=== PATIENT | male | born 1955 | race African-American/Black ===

== ENCOUNTER 2016-09-30 08:42 | Day surgery (SDC) | payer OTHER ==
[2016-09-25 10:57] VITALS: BMI 37.9
[2016-09-30] MEDS ORDERED: PROPOFOL 20 ML ONE ×3 (09:01→12:10)
[2016-09-30 12:36] VITALS: TEMP 98.2
[2016-09-30 13:16] VITALS: BP 128/72; PULSE 78
--- NOTE | 2016-10-01 16:20 | PATH ---
Surgical Pathology Report Patient Name: MEHRAN NOVA [facility]. Rec. #: [id number] /Age/Gender: 1955 (Age: 61) / M Account: [id number] Location: [facility]-ENDOS[facility] Taken: 09/30/2016 Received: 09/30/2016 Reported: 10/01/2016 Physicians: Shen Alexis M.D. Specimen(s) Received BX RIGHT COLON Clinical History History of polyps Final Diagnosis RIGHT COLON, BIOPSY: TUBULAR ADENOMA. Electronically Signed Daria Vivar M.D. Gross Description Received in formalin, labeled "right colon" is a tomlin, irregular portion of soft tissue measuring 0.7 cm. in greatest dimension. The specimen is submitted in toto in one cassette. 09/30/201609/30/2016
== END 2016-09-30 13:18 | disposition home or self-care (01) ==
LOC: FASU-ENDO 08:42
PROVIDERS: ATTEND Internal Medicine Gastroenterology
PROC: 0DBK8ZX Excision of Ascending Colon, Via Natural or Artificial Opening Endoscopic, Diagnostic (ICD-10-PCS; principal; 2016-09-30 11:58)
PROC: 0DBK8ZX Excision of Ascending Colon, Via Natural or Artificial Opening Endoscopic, Diagnostic (ICD-10-PCS; 2016-09-30 11:58)
DX: Z12.11 Encounter for screening for malignant neoplasm of colon (principal); Z86.010 Personal history of colon polyps; D12.2 Benign neoplasm of ascending colon; K57.30 Diverticulosis of large intestine without perforation or abscess without bleeding
CPT/HCPCS: 88305-TC